=== PATIENT | male | born 1960 | race Native Hawaiian/Other Pacific Islander ===

== ENCOUNTER → 2017-10-31 | Day surgery (SDC) | payer OTHER ==
[2017-10-31] MEDS: NS 1,000 ML IV (11:20)
== END | disposition home or self-care (01) ==
LOC: M OPP 10:36
DX: K62.5 Hemorrhage of anus and rectum (principal); D12.8 Benign neoplasm of rectum; K64.0 First degree hemorrhoids; I10 Essential (primary) hypertension; G25.81 Restless legs syndrome; R06.83 Snoring; Z86.11 Personal history of tuberculosis; Z88.3 Allergy status to other anti-infective agents; Z79.899 Other long term (current) drug therapy
CPT/HCPCS: 45380